=== PATIENT | female | born 1935 | race Caucasian/White ===

== ENCOUNTER 2019-01-12 16:58 | Observation (INO) | payer OTHER ==
--- OUTSIDE RECORDS SUMMARY | 2019-01-12 17:32 | XMS REPORT | Clinical Summary ---
:1935 Author Organization [facility] Address [address] [place] [address] Care Team Providers Name Role Phone Rafael Valdovinos MD Primary Care Provider Allergies Active Allergy Reactions Severity Noted Date Comments No Known Drug Allergies 01/19/2016 Medications Medication Sig Dispensed Refills Start Date End Date Status amLODIPine (NORVASC) 2.5 TK 1 T PO QD 5 03/01/2016 Active MG tablet VOLTAREN 1 % gel APPLY 4 2 04/16/2016 Active APPLICATIONS QID PRN irbesartan (AVAPRO) 300 0 05/16/2016 Active MG tablet PARoxetine (PAXIL) 40 MG TK 1 T PO QD 5 04/06/2016 Active tablet zolpidem (AMBIEN) 5 MG Take 5 mg by 3 04/13/2016 Active tablet mouth nightly as needed. esomeprazole (NexIUM) 40 Take 40 mg by 0 Active MG capsule mouth daily before breakfast. multivitamin with Take 1 tablet by 0 Active minerals tablet mouth daily. hydroCHLOROthiazide 0 11/07/2017 Active (HYDRODIURIL) 12.5 MG tablet levocetirizine Take 1 tablet by 0 Active dihydrochloride (XYZAL mouth daily. ORAL) predniSONE (DELTASONE) 5 Take 1 tablet (5 30 tablet 1 11/25/2017 01/25/20 mg tablet mg total) by 18 mouth daily for 60 days. traMADol (ULTRAM) 50 mg Take 2 tablets 60 tablet 2 11/25/2017 01/25/20 tablet (100 mg total) by 18 mouth every 12 (twelve) hours as needed for moderate pain for up to 60 days. Active Problems Problem Noted Date Rheumatoid arthritis 11/26/2016 GERD (gastroesophageal reflux disease) 01/19/2016 OA (osteoarthritis) 01/19/2016 Hypertension 01/19/2016 Scoliosis 01/19/2016 HL (hearing loss) Miscarriage Cancer Overview: Right mastectomy s/p chemo and radiation 1997 with no recurrence Hyperlipidemia Family History Medical History Relation Name Comments Rheum arthritis Mother Rheum arthritis Paternal Grandmother Relation Name Status Comments Mother Paternal Grandmother Social History Tobacco Use Types Packs/Day Years Used Date Never Smoker Smokeless Tobacco: Never Used Alcohol Use Drinks/Week oz/Week Comments No not found Sex Assigned at Date Recorded Not on file Job Start Date Occupation Industry Not on file Not on file Not on file Travel History Travel Start Travel End No recent travel history available. Last Filed Vital Signs Not on file Plan of Treatment Health Maintenance Due Date Last Done Comments SHINGLES VACCINES (#1) 1985 65+ PNEUMOCOCCAL VACCINE (1 of 2 - PCV13) 2000 INFLUENZA VACCINE 03/05/2019 Results Not on fileafter 01/11/2018 ([place] [address] Advance Directives Patient has advance care planning documents on file. For more information, please contact:Adriano Lieberman[address] [place] [address]
[2019-01-12] MEDS ORDERED: ACETAMINOPHEN 325 MG TABLET PO PRN (17:52)
[2019-01-12] MEDS ORDERED: DIPHENHYDRAMINE 25 MG TAB/CAP PO PRN (17:52)
[2019-01-12] MEDS ORDERED: ONDANSETRON 4 MG (ODT) TAB PO PRN (17:53)
[2019-01-12] MEDS ORDERED: LOPERAMIDE HCL 2 MG CAPSULE PO PRN (17:53)
[2019-01-12] MEDS ORDERED: POLYETHYL GLY 3350 17 GM/DOSE PO PRN (17:53)
[2019-01-12] MEDS: NACHLORIDE 0.45% 1,000 ML IV SCH (20:00)
[2019-01-12] MEDS ORDERED: ENOXAPARIN 40 MG/0.4 ML SQ SCH (21:00)
[2019-01-12] MEDS ORDERED: TRAMADOL HCL 50 MG TAB PO PRN (21:06)
[2019-01-12] MEDS: ONDANSETRON 4 MG/2 ML VIAL IV PRN (21:32)
[2019-01-12] MEDS ORDERED: PARoxetine HCl 10 MG TAB PO SCH (22:00)
[2019-01-12] MEDS ORDERED: IRBESARTAN 150 MG TAB PO SCH (22:00)
[2019-01-12 22:43] LABS: Absolute Monocytes 1.3 K/uL (0.1-1.3); Absolute Neutrophil 6.1 K/uL (1.8-8.0); Basophils % 0.4 % (0-1.3); Eosinophils % 1.2 % (0-4.4); Hematocrit 36.5 % (36.0-45.0); Lymphocytes % 21.4 % (15.3-44.8); MPV 8.3 fL (7.6-11.3); Monocytes % 13.2 % (3.3-12.3); RBC Red Blood Cell Count 4.22 M/uL (3.86-4.86)
[2019-01-12 22:52] LABS: Protime INR 1.1
[2019-01-12 23:21] LABS: Albumin 3.4 g/dL (3.4-5.0); Bilirubin Direct 0.2 mg/dL (0-0.2); Bilirubin Total 0.7 mg/dL (0.2-1.0); Phosphorus 3.1 mg/dL (2.5-4.9); Potassium 3.6 mmol/L (3.5-5.1); Protein, Total 6.9 g/dL (6.4-8.2); Thyroid Stimulating Hormone 1.49 uIU/mL (0.360-3.740)
[2019-01-13] MEDS: ONDANSETRON 4 MG/2 ML VIAL IV PRN (02:39)
[2019-01-13 06:15] LABS: Urine Appearance CLEAR; Urine Bilirubin NEGATIVE (NEG); Urine Blood NEGATIVE (NEG); Urine Color YELLOW; Urine Glucose NEGATIVE (NEG); Urine Microscopic Reflex ORDER UMIC; Urine Protein NEGATIVE (NEG); Urine Specific Gravity >=1.030 (1.005-1.030); Urine Urobilinogen 0.2 mg/dL (0.2-1.0); Urine pH 5.5 (5.0-7.0)
[2019-01-13 06:21] LABS: Absolute Lymphocytes (CBC) 1.8 K/uL (0.7-4.9); Absolute Neutrophil 5.1 K/uL (1.8-8.0); Basophils % 0.9 % (0-1.3); Eosinophils % 2.4 % (0-4.4); Lymphocytes % 21.8 % (15.3-44.8); MPV 8.4 fL (7.6-11.3); Monocytes % 12.6 % (3.3-12.3); RBC Red Blood Cell Count 4.17 M/uL (3.86-4.86)
[2019-01-13 06:22] LABS: Urine Bacteria >50 /HPF (<20); Urine Culture Reflex Order REFLEXED; Urine RBC NONE SEEN /HPF (NONE SEEN)
[2019-01-13 06:36] VITALS: BMI 24.2
[2019-01-13 06:42] LABS: Potassium 3.4 mmol/L (3.5-5.1)
[2019-01-13] MEDS: NACHLORIDE 0.45% 1,000 ML IV SCH ×2 (07:20→08:40)
--- NOTE | 2019-01-13 08:09 | RAD REPORT ---
EXAM DESCRIPTION: Payton Martínez (2 Views)01/12/2019 9:55 pm CLINICAL HISTORY: Abdominal pain COMPARISON: 2014 FINDINGS: Bilateral interstitial lung opacities appear chronic The heart is normal size IMPRESSION: No acute abnormalities displayed
--- NOTE | 2019-01-13 08:36 | RAD REPORT ---
EXAM DESCRIPTION: CT - Abdomen Pelvis W Contrast - 01/12/2019 9:47 pm CLINICAL HISTORY: Abdominal pain. COMPARISON: None. TECHNIQUE: Computed axial tomography of the abdomen and pelvis was obtained. 100 cc Isovue-300 is ad ministered intravenously. Oral contrast was given. All CT scans are performed using dose optimization technique as appropriate and may include automated exposure control or mA/KV adjustment according to patient size. FINDINGS: A small hepatic cyst is present Spleen, pancreas, and adrenal appear unremarkable. Small renal cysts. Calculus is present within each kidney without hydronephrosis. Right renal calculu s measures 2 millimeters. Left renal calculus measures 5 millimeters 2.5 centimeter soft tissue structure present in the gastric fundus. Diverticula stem from the colon without evidence of diverticulitis 3.7 centimeter sebaceous cyst subcutaneous tissues midline posterior back Small umbilical hernia IMPRESSION: 2.5 centimeters soft tissue structure in the gastric fundus may represent a mass or nor mal ingested contents. Endoscopy recommended
[2019-01-13] MEDS ORDERED: POTASSIUM CL SA 10 MEQ TAB PO ONE (09:00)
[2019-01-13] MEDS ORDERED: predniSONE 5 MG TAB PO SCH (09:00)
[2019-01-13] MEDS ORDERED: AMLODIPINE 2.5 MG TAB PO SCH (09:00)
[2019-01-13 11:54] VITALS: O2SAT 95
--- NOTE | 2019-01-13 12:05 | EKG ---
Test Date: 2019-01-12 Test Time: 22:49:50 Assembly Manager: MARK MEASUREMENT RESULTS: Intervals: Rate: 80 TN: 186 QRSD: 92 QT: 386 QTc: 445 [place]: P: 23 TN: 186 QRS: 9 T: 63 INTERPRETIVE STATEMENTS: Sinus rhythm with premature atrial complexes Septal infarct, age undetermined Abnormal ECG Compared to ECG 04/11/2010 12:15:40 Atrial premature complex(es) now present Myocardial infarct finding now present Ventricular premature complex(es) no longer present ST (T wave) deviation no longer present Electronically Signed On 01-13-19 12:02:31 CDT by Aly Hart
--- NOTE | 2019-01-13 13:04 | P.DS ---
Admission Date: 01/12/19 Discharge Date: 01/13/19 Disposition: ROUTINE DISCHARGE Discharge Condition: FAIR Hospital Course: MS. LOERA IS DOING GREAT. SHE HAS NO MORE NAUSE AND VOMITING. SHE HAS A STOMACH MASS ON CT SCAN. SHE WILL GO TO HER GI [facility]ORS FOR EGD. THIS TIME I SAW HER AFTER TWO YEARS AND SO SHE DOES NOT COME TO ME ROUTINELY. 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 SHE IS AWARE OF WHAT TO DO. SHE UNDERSTOOD. Vital Signs/Physical Exam: Temp Pulse Resp BP Pulse Ox 97 F 87 18 134/53 L 95 01/13/19 08:00 01/13/19 08:40 01/13/19 08:00 01/13/19 08:40 01/13/19 08:00 Laboratory Data at Discharge: WBC 8.2 K/uL (4.3-10.9) 01/13/19 05:47 Hgb 11.9 g/dL (12.0-15.0) L 01/13/19 05:47 Hct 36.0 % (36.0-45.0) 01/13/19 05:47 Plt Count 255 K/uL (152-406) 01/13/19 05:47 PT 12.9 SECONDS (9.5-12.5) H 01/12/19 22:30 INR 1.10 01/12/19 22:30 APTT 25.9 SECONDS (24.3-36.9) 01/12/19 22:30 Sodium 139 mmol/L (136-145) 01/13/19 05:47 Potassium 3.4 mmol/L (3.5-5.1) L 01/13/19 05:47 BUN 16 mg/dL (7-18) 01/13/19 05:47 Creatinine 0.93 mg/dL (0.55-1.3) 01/13/19 05:47 Glucose 103 mg/dL (74-106) 01/13/19 05:47 Phosphorus 3.1 mg/dL (2.5-4.9) 01/12/19 22:30 Magnesium 2.0 mg/dL (1.8-2.4) 01/13/19 05:47 Total Bilirubin 0.7 mg/dL (0.2-1.0) 01/12/19 22:30 AST 16 U/L (15-37) 01/12/19 22:30 ALT 17 U/L (12-78) 01/12/19 22:30 Alkaline Phosphatase 68 U/L (45-117) 01/12/19 22:30 Amylase 42 U/L (25-115) 01/12/19 22:30 Lipase 154 U/L (73-393) 01/12/19 22:30 Home Medications: Amlodipine [Norvasc] 2.5 mg PO DAILY 01/12/19 Cetirizine HCl [Zyrtec] 10 mg PO DAILY PRN 01/12/19 Esomeprazole Mag Trihydrate [Nexium] 40 mg PO BEDTIME 01/12/19 Irbesartan [Avapro] 300 mg PO BEDTIME 01/12/19 Multivitamin [Multivitamins] 1 each PO DAILY 01/12/19 PARoxetine HCl [Paroxetine HCl] 40 mg PO BEDTIME 01/12/19 Prednisone [Elizabeth] 5 mg PO DAILY 01/12/19 Tramadol HCl [Ultram] 50 mg PO Q6HP PRN 01/12/19 Zolpidem Tartrate 5 mg PO BEDTIME 01/12/19 hydroCHLOROthiazide [Hydrochlorothiazide] 25 mg PO DAILY 01/12/19 Promethazine Suppos [Phenergan -Suppos*] 12.5 mg RC QID PRN #10 supp 01/13/19 New Medications: Promethazine Suppos [Phenergan -Suppos*] 12.5 mg RC QID PRN #10 supp PRN Reason: Nausea / Vomiting
[2019-01-13 13:27] VITALS: BP 143/63; TEMP 97.8
[2019-01-13] MEDS ORDERED: ZOLPIDEM TARTRATE 5 MG TABLET PO SCH (21:00)
[2019-01-16 17:36] LABS: Vitamin D 1,25-Dihydroxy Total 44 pg/mL (18-72); Vitamin D,1,25-OH2, D2 <8 pg/mL
== END 2019-01-13 15:49 | disposition home or self-care (01) ==
LOC: 2ND 17:26
PROVIDERS: ADMIT Internal Medicine; ATTEND Internal Medicine
DX: E86.0 Dehydration (principal); R11.2 Nausea with vomiting, unspecified; K31.9 Disease of stomach and duodenum, unspecified; I10 Essential (primary) hypertension; M06.9 Rheumatoid arthritis, unspecified; R94.31 Abnormal electrocardiogram [ECG] [EKG]; I49.1 Atrial premature depolarization; N20.0 Calculus of kidney; K57.30 Diverticulosis of large intestine without perforation or abscess without bleeding; K42.9 Umbilical hernia without obstruction or gangrene; K76.89 Other specified diseases of liver; N28.1 Cyst of kidney, acquired; L72.3 Sebaceous cyst; Z79.899 Other long term (current) drug therapy
CPT/HCPCS: 93005; 87088; 85025 ×2; 87086; 80048 ×2; 36415; 82150; 83735 ×2; 84100; 85610; 80076; 85730; 82652; 84443; 87077; 87186; 82607; 83690; 74177; 71046; Q9967; J1650; J2405 ×2; G0379; G0378; 81003; 81015; J7512

== ENCOUNTER 2019-08-25 09:22 | Day surgery (SDC) | payer OTHER ==
--- NOTE | 2019-08-25 09:07 | RAD REPORT ---
EXAM DESCRIPTION: Payton Gamboa And Felecia (2 Views)08/25/2019 8:50 am CLINICAL HISTORY: Preop for removal of back mass COMPARISON: January 2019 FINDINGS: A chronic appearing lung opacities are present. Lungs appear clear of acute infiltration. The heart is mildly enlarged IMPRESSION: No acute abnormalities displayed
[2019-08-25 09:33] LABS: Absolute Lymphocytes (CBC) 3.4 K/uL (0.7-4.9); Basophils % 1.2 % (0-1.3); Hematocrit 35.5 % (36.0-45.0); Lymphocytes % 29.8 % (15.3-44.8); MPV 7.8 fL (7.6-11.3); RBC Red Blood Cell Count 4.28 M/uL (3.86-4.86)
[2019-08-25 09:41] LABS: Potassium 3.8 mmol/L (3.5-5.1)
[2019-08-25] MEDS ORDERED: CEFAZOLIN/SWI 1gm 1 GM/10 ML SYR ONE (09:47)
[2019-08-25] MEDS ORDERED: Ringers Lactate 1,000 ML IV ONE (09:47)
[2019-08-25] MEDS ORDERED: propofoL 200 MG/20 ML VIAL IV ONE (10:30)
[2019-08-25] MEDS ORDERED: FENTANYL CITR 100 MCG/2 ML ONE (10:30)
[2019-08-25] MEDS ORDERED: MIDAZOLAM HCL 2 MG/2 ML INJ ONE (10:30)
--- NOTE | 2019-08-25 11:24 | EKG ---
Test Date: 2019-08-25 Test Time: 08:55:33 Child Day Care Provider: CHAPITO MEASUREMENT RESULTS: Intervals: Rate: 85 AL: 180 QRSD: 94 QT: 368 QTc: 437 [place]: P: 41 AL: 180 QRS: 25 T: 26 INTERPRETIVE STATEMENTS: Sinus rhythm with premature atrial complexes Otherwise normal ECG Compared to ECG 01/12/2019 22:49:50 Myocardial infarct finding no longer present Electronically Signed On 08-25-19 11:23:15 CADDY/CADDIE SUPERVISOR by Aly Hart
[2019-08-25 12:06] VITALS: TEMP 97
[2019-08-25 16:12] VITALS: BP 169/70; O2SAT 95
--- NOTE | 2019-08-25 19:35 | OP ---
Date of Procedure: 08/25/2019 Surgeon: Pietro Gloria MD Er Medical Technician: FRANK Myrick. Preoperative Diagnosis: Left arm mass and back mass. Postoperative Diagnosis: Left arm mass and back mass. Procedure: 1.Excision of left arm mass 6 x 4 cm with layered closure, length of closure 6 cm. 2.Wide excision, back mass 8 x 4 cm with layered closure, length of closure 8 cm. Estimated Blood Loss: Minimal. Specimen: Left arm mass, lipoma, back mass, sebaceous cyst. Findings: As above. Anesthesia: General. Complications: None. Disposition: Patient tolerated the procedure in stable condition, taken to Recovery in good general condition. Description Of Procedure: Patient was brought to the OR and placed in supine position. General anes thesia was begun. Patient was positioned in the left lateral position, prepped draped in usual steri le fashion. Marcaine 0.5% was infiltrated locally. A 15-blade was used to make a 6 cm incision on t he left arm over this mass medially in the upper part of the arm. Subcutaneous tissue divided and de ep to the subcu tissue, a large 6 x 4 cm mass lipomatous in nature excised and sent to Pathology as joel hines. Wound irrigated. Bleeding controlled with cautery. 3-0 chromic used to reapproximate the subcutaneous tissue and 3-0 chromic also used to close the skin. Sterile dressing was applied. Then on the back, an 8 cm x 4 cm incision was made ellipse in nature. Subcutaneous tissue divided. Aspi ration cyst identified, dissected free from the surrounding tissue. The entire cyst excised with the wall intact and sent to Pathology as specimen. Wound was irrigated. Bleeding was controlled with c autery. 2-0 and 3-0 chromic used to approximate the subcutaneous tissue and then 4-0 nylon used to c lose the skin. Sterile dressing was applied. Patient was awakened and taken to Recovery in good gen eral condition. /MODL Voice ID: [id number] Report ID: [id number]
--- NOTE | 2019-08-25 19:38 | DS ---
Date of Discharge: 08/25/2019 Patient will go to Day Surgery and home when stable. Disposition: Home. Condition: Stable. Discharge Instructions: Resume home medications and diet. Activity as tolerated. No heavy lifting. Keep dressing clean and dry, sponge bathe only. Tylenol No. 3 one tablet p.o. q.4 p.r.n. pain, Cip ro 500 mg p.o. q.12. Follow up my office in a week. Call for appointment. VALENTIN/JOANN Voice ID: [id number] Report ID: [id number]
== END 2019-08-25 13:30 | disposition home or self-care (01) ==
LOC: OR 09:22
PROVIDERS: ATTEND Surgery
PROC: 0JBF0ZZ Excision of Left Upper Arm Subcutaneous Tissue and Fascia, Open Approach (ICD-10-PCS; 2019-08-25)
PROC: 0JB70ZZ Excision of Back Subcutaneous Tissue and Fascia, Open Approach (ICD-10-PCS; principal; 2019-08-25 10:00)
DX: D17.22 Benign lipomatous neoplasm of skin and subcutaneous tissue of left arm (principal); L72.3 Sebaceous cyst; I10 Essential (primary) hypertension
CPT/HCPCS: 93005; 85025; 80048; 36415; 88304; 71046; 11406; 24071; J2704; J2250; J3010; J0690; J7120; 88305

== ENCOUNTER 2022-04-26 11:55 | Inpatient (IN) | payer OTHER ==
--- OUTSIDE RECORDS SUMMARY | 2022-04-26 11:58 | XMS REPORT | Continuity of Care Document ---
:1935 Author Organization [facility] t Address [address] [place] [address] Care Team Providers Name Role Phone Rafael Valdovinos MD Primary Care Physician Rafael Valdovinos Attending Clinician Unavailable ATTRITO ROJAS Attending Clinician Unavailable Problems Condition Condition Condition Status Onset Resolution Last Treating Co mments Source Name Details Category Date Date Treatment Clinician Date Gastric Gastric Disease Active 2018-08 [facility] polyps [facility]ps [facility] l Rheumatoid Rheumatoid Disease Active [facility] arthritis arthritis 11-26 st 00[facility]: [facility] 00 l GERD GERD Disease Active [facility] (gastroeso (gastroeso 01-18 phageal phageal 00:00: Hospita reflux reflux 00 l disease) disease) OA OA Disease Active [facility] (osteoarth (osteoarth 16 st ritis) ritis) 00:00: Hospita 00 l Hypertensi Hypertensi Disease Active M [facility]i on on 01-18 00:00: Hospita 00 l Scoliosis Scoliosis Disease Active Met hodi 16 st 00:00: Hospita 00 l HL HL Disease Active [facility] (hearing (hearing st loss) loss) Hospita l Miscarriag Miscarriag Disease Active M ethodi e e st Hospita l Cancer Cancer Disease Active Overview: [facility] i Formattin [facility] g of this Hospita note l might be different from the original. Right mastectom y s/p chemo and radiation 1997 with no recurrenc e Hyperlipid Hyperlipid Disease Active M ethodi emia emia st Hospita l Allergies, Adverse Reactions, Alerts Allergy Allergy Status Severity Reaction(s) Onset Inactive Treating Comm ents Source Name Type Date Date Clinician Latex, Propensi Active Itching [facility] Natural ty to 08-13 st Rubber adverse 00:00: Hospita reaction 00 l s to drug Family History Family Member Diagnosis Comments Start Date Stop Date Source Natural mother Rheum arthritis [facility] Paternal grandmother Rheum arthritis [facility] Social History Social Habit Start Date Stop Date Quantity Comments Source Alcohol intake 2020-12-07 2020-12-07 Current Jew 00:00:00 00:00:00 non-drinker of Hospital alcohol (finding) Tobacco use and 2016-05-23 2016-05-23 Smokeless tobacco [facility] exposure 00:00:00 00:00:00 non-user Hospital Alcohol Comment 2016-01-19 2016-01-19 not found Jew 00:00:00 00:00:00 [facility] Sex Assigned At [birth year] Jew 00:00:00 00:00:00 Hospital Smoking Status Start Date Stop Date Source Never smoked tobacco [facility] Medications Ordered Filled Start Stop Current Ordering Indication Dosage Frequency Signature Comments Components Source Medication Medication Date Date Medication? Clinician (SIG) Name Name raloxifene Yes 60mg QD Take 60 mg M ethodi (EVISTA) 60 5-[address] mg tablet 13:09: daily. Hospit a 32 l zinc Yes Take by [facility] sulfate 5-[address] (ZINC-15 13:09: Hospita ORAL) 32 l acetaminoph [place] [id number] 1{tbl} Q4H Take 1 M ethodi en-codeine 5-[address] (TYLENOL 13:09: mouth Hospita WITH 32 every 4 l CODEINE #3) (four) 300-30 mg hours as per tablet needed for moderate pain .acute pain. multivitami 2020-0 Yes 1{tbl} QD Take 1 Me thodi n with 1-[address] minerals 15:07: mouth Hospita tablet 40 daily. l predniSONE 2019-0 Yes 5mg QD Take 5 mg [facility] (DELTASONE) 1-[address] 5 mg tablet 15:07: daily. Hosp fili 40 l cetirizine 2019-0 Yes 10mg QD Take 10 mg M ethodi (ZyrTEC) 10 1-[address] MG tablet 15:07: daily. Hospit a 40 l irbesartan 2015-08 Yes [facility] (AVAPRO) 0-12 st 300 MG 00:00: Hospita tablet 00 l PARoxetine Yes TK 1 T PO Me thodi (PAXIL) 40 9-[address] MG tablet 00:00: Hospita 00 l amLODIPine Yes TK 1 T PO Me [facility] (NORVASC) 7-[address] 2.5 MG 00:00: Hospita tablet 00 l Procedures This patient has no known procedures. Plan of Care Planned Activity Planned Date Details Comments Source Future Scheduled 2022-04-04 HEPATITIS B VACCINES Met [facility] Test 17:36:22 (1 of 3 - 3-dose series) [code = HEPATITIS B VACCINES (1 of 3 - 3-dose series)] Future Scheduled 2022-04-04 COVID-19 VACCINE (#1) [facility] Test 17:36:22 [code = COVID-19 VACCINE (#1)] Future Scheduled 2022-04-04 SHINGLES VACCINES (1 Met [facility] Test 17:36:22 of 2) [code = SHINGLES VACCINES (1 of 2)] Future Scheduled 2022-04-04 65+ PNEUMOCOCCAL [facility] Test 17:36:22 VACCINE (1 - PCV) [code = 65+ PNEUMOCOCCAL VACCINE (1 - PCV)] Future Scheduled 2022-04-04 INFLUENZA VACCINE Method [facility] Test 17:36:22 [code = INFLUENZA VACCINE] Encounters Start End Encounter Admission Attending Care Care Encounter Source Date/Time Date/Time Type Type Clinicians Facility Department ID 2022-03-08 Outpatient SINDY Valdovinos [facility] [id number] Common 08:14:04 Rafael [id number] [facility] 2022-04-23 2022-04-23 [place] M00 [id number] 13:38:00 16:54:[address] 2020-12-07 2020-12-07 Outpatient [facility] [id number] [address] 00:00:00 00:00:00 RITO Martinez[address] Results This patient has no known results.
[2022-04-26 13:21] LABS: Absolute Lymphocytes (CBC) 0.9 K/uL (0.7-4.9); Hematocrit 34.2 % (36.0-45.0); Lymphocytes % 4.2 % (15.3-44.8); MCV 91.4 fL (80-100); MPV 7.6 fL (7.6-11.3); RBC Red Blood Cell Count 3.74 M/uL (3.86-4.86)
--- NOTE | 2022-04-26 13:24 | RAD REPORT ---
EXAM DESCRIPTION: RAD - Chest Single View - 04/26/2022 12:56 pm CLINICAL HISTORY: MALAISE COMPARISON: Two view chest 08/25/2019 TECHNIQUE: AP portable chest image was obtained 04/26/2022 12:56 pm . FINDINGS: Lung volumes are low. Substantial portions of the right upper lobe show airspace opacifica tion with air bronchogram formation. Minimal patchy left upper lobe airspace opacification is seen. A larger area of interstitial and alveolar opacification is present in the left lower lobe partially o bscuring the left heart border and left hemidiaphragm. Trachea is in the midline. Heart and vasculature are normal. No pneumothorax or large pleural effusio n. Small left pleural effusion cannot be excluded. No acute bony abnormality seen. No acute aortic fi ndings suspected. IMPRESSION: Moderate-sized right upper lobe and left lower lobe pneumonias with minimal left upper l obe pneumonia as well.
[2022-04-26 13:34] LABS: Albumin 2.7 g/dL (3.4-5.0); Bilirubin Total 0.9 mg/dL (0.2-1.0); Potassium 3.8 mmol/L (3.5-5.1); Protein, Total 6.1 g/dL (6.4-8.2)
[2022-04-26] MEDS ORDERED: CEFTRIAXONE 1000 MG/VIAL ONE (14:19)
[2022-04-26] MEDS ORDERED: AZITHROMYCIN 500 MG INJ IVPB ONE (14:19)
[2022-04-26] MEDS ORDERED: NA CHLORIDE 0.9% 250 ML ONE (14:19)
--- NOTE | 2022-04-26 14:25 | RAD REPORT ---
EXAM DESCRIPTION: CT - Angio Aorta For Dissection - 04/26/2022 2:10 pm CLINICAL HISTORY: hypoxia, L flank pain, abnormal chest film COMPARISON: Portable chest same date TECHNIQUE: Dynamically enhanced 3 mm thick images of the chest, abdomen, and upper pelvis were obtai desi during administration of approximately 150mL Isovue 370 IV contrast. Sagittal and coronal reconst ruction images were generated using MIP and reviewed. Exam utilizes a protocol to evaluate entire cou rse of the aorta. All CT scans are performed using dose optimization technique as appropriate and may include automated exposure control or mA/KV adjustment according to patient size. FINDINGS: Aorta is normal in diameter with no dissection or other acute aortic findings. Reconstruct ion images show no significant findings. Aorta is tortuous following the course of the bony scoliosis . Pulmonary arteries are normal as well. No cardiomegaly, pericardial thickening or pericardial effusio n. Patient has significant underlying interstitial lung disease. Extensive airspace opacification presen t throughout most of the right upper lobe. Small airspace opacities are present in the right middle a nd right lower lobes. Honeycombing in the posterior right lower lung field present. Patchy airspace o pacification seen in the posterior aspect of the left upper lobe and in the superior segment left low er lobe. Airspace opacification continues inferiorly into the lingula. Small amount of infiltrate is seen in the posterior gutter where there is also honeycombing identifiable. A small right pleural eff usion is present with fluid also seen along the superior aspect of the major fissure. Minimal fluid s een along the superior aspect of the fissure and in the posterior gutter on the left. No pneumothorax . A few small nonspecific mediastinal and hilar lymph nodes are present likely reactive from the infilt rative changes. No chest wall mass or abnormal axillary lymphadenopathy. Right mastectomy surgical ch anges are noted. Celiac, SMA and renal arteries show no suspicious findings. Two renal artery supply the right kidney. Solid abdominal viscera and bowel show no significant findings. Incidental note made of renal cysts. No mass or abnormal lymphadenopathy. No free air, free fluid or inflammatory stranding. No urinary bladder abnormality. Scoliosis is present with prominent degenerative changes in the spine. IMPRESSION: Negative CT scan of the aorta for acute or significant finding. No pulmonary emboli identified. Extensive bilateral pneumonia findings are present superimposed on chronic lung disease. Pneumonia fi ndings are most pronounced in the right upper lobe.
[2022-04-26 14:42] LABS: Urine Blood Negative (Negative); Urine Glucose Negative (Negative); Urine Protein 1+ (Negative); Urine Specific Gravity 1.015 (1.005-1.030); Urine pH 5.5 (5.0-7.0)
[2022-04-26 14:53] LABS: Protime INR 1.27
[2022-04-26 15:00] LABS: Urine Bacteria 20-50 /HPF (<20); Urine Mucus Slight /HPF (None Seen)
--- NOTE | 2022-04-26 15:58 | ER ---
Nurse's Notes [facility] Name: Yady Jaime Age: 87 yrs Sex: Female : 1935 Arrival Date: 04/26/2022 Time: 11:58 Bed 27 Private MD: Rafael Valdovinos V Diagnosis: Pneumonia, unspecified organism;UTI/ Urinary tract infection, site not specified;Elevated Troponin Presentation: 04/26 12:06 Chief complaint: Patient states: She hurts all over her body and I think she is aa5 dehydrated. She was diagnosed with a UTI on Saturday but the antibiotics aren't working. Coronavirus screen: Client presents with at least one sign or symptom that may indicate coronavirus-19. Standard/surgical mask placed on the client. Ebola Screen: No symptoms or risks identified at this time. 12:06 Method Of Arrival: Wheelchair aa5 12:21 Initial Sepsis Screen: Does the patient meet any 2 criteria? No. Patient's initial bm7 sepsis screen is negative. Does the patient have a suspected source of infection? Yes: Dysuria/Frequency/Urgency/UTI. Risk Assessment: Do you want to hurt yourself or someone else? Patient reports no desire to harm self or others. Onset of symptoms is unknown. 12:21 Acuity: BUSTER 2 bm7 Triage Assessment: 12:21 General: Appears in no apparent distress. uncomfortable, Behavior is anxious. Pain: bm7 Complains of pain in back. EENT: No deficits noted. No signs and/or symptoms were reported regarding the EENT system. Neuro: No deficits noted. Cardiovascular: Patient's skin is warm and dry. Chest pain is denied. Respiratory: Airway is patent Respiratory effort is even, unlabored, Respiratory pattern is regular, symmetrical, Breath sounds are clear bilaterally. GI: Parent/caregiver reports the patient having constipation. : Parent/caregiver report the patient having burning with urination inability to void urinary frequency. Derm: No deficits noted. No signs and/or symptoms reported regarding the dermatologic system. Musculoskeletal: Reports pain in back. Historical: - Allergies: 12:21 No Known Allergies; bm7 - Home Meds: 12:21 Unable to obtain [Active]; bm7 - PMHx: 12:21 Unable to Obtain; bm7 - PSHx: 12:21 Unable to Obtain; bm7 - Immunization history:: Adult Immunizations up to date. - Social history:: Smoking status: unknown. Screenin:10 Abuse screen: Denies threats or abuse. Denies injuries from another. jh6 13:10 Nutritional screening: No deficits noted. Tuberculosis screening: No symptoms or risk jh6 factors identified. Fall Risk None identified. Assessment: 13:10 General: Appears uncomfortable, well groomed, Behavior is calm, cooperative. jh6 13:10 Pain: Complains of pain in back Pain currently is 5 out of 10 on a pain scale. Quality jh6 of pain is described as aching, Pain began 2-3 days ago. Is continuous, Alleviated by rest, repositioning, Aggravated by increased activity, repositioning, weight bearing. Neuro: No deficits noted. Cardiovascular: No deficits noted. Capillary refill < 3 seconds Clubbing of nail beds is absent JVD is absent Patient's skin is warm and dry. Rhythm is irregular. Respiratory: Airway is patent Trachea midline Respiratory effort is even, unlabored, Respiratory pattern is regular, symmetrical. 14:30 Reassessment: Patient and/or family updated on plan of care and expected duration. Pain jh6 level reassessed. Patient is alert, oriented x 3, equal unlabored respirations, skin warm/dry/pink. Patient states symptoms have improved. 04/27 00:51 Reassessment: Patient repeatedly taking off high flow NC. Patient will DeSat into the ll3 70's. Patient educated on need for oxygen. Patient appeared to understand but than would later forget and take NC off again. notified of patients mental and physical state. Charge nurse notified that a sitter would be appropriate for this patient. No sitter available. Both HC and charge aware of request. 00:51 General: Bipap being placed on patient at this time in hopes that will help her keep ll3 her oxygen up. . Vital Signs: 04/26 12:06 BP 137 / 61; Pulse 70; Resp 18; Temp 98.2(TE); Pulse Ox 80% ; Weight 63.5 kg (R); aa5 Height 5 ft. 5 in. (165.10 cm); Pain 5/10; 12:25 Pulse Ox 85% on 4 lpm NC; bm7 12:45 BP 132 / 94; Pulse 112; Resp 22; Pulse Ox 90% on 2 lpm NC; Pain 5/10; jh6 14:26 BP 131 / 60; Pulse 109; Resp 22; Pulse Ox 90% on 2 lpm NC; Pain 5/10; jh6 12:06 Body Mass Index 23.30 (63.50 kg, 165.10 cm) aa5 Vitals: 12:45 Cardiac Rhythm Assessment Irregular. jh6 ED Course: 11:58 Patient arrived in ED. rg4 11:58 Rafael Valdovinos MD is Private Physician. rg4 12:11 Mis Beard FNP is [facility]. jh7 12:11 Néstor Morillo MD is Attending Physician. jh7 12:21 Triage completed. bm7 12:21 Arm band placed on right wrist. bm7 12:24 Oxygen administration via nasal cannula \T\ 4L/min Response to oxygen therapy: symptoms bm7 improved. 12:57 Chest Single View XRAY In Process Unspecified. EDMS 13:00 Placed in gown. Call light in reach. Side rails up X 1. Adult w/ patient. jh6 14:[address] via wheelchair. jh6 14:12 CT Aorta for Dissection In Process Unspecified. EDMS 15:56 Rafael Valdovinos MD is Hospitalizing Provider. jh7 17:56 Mis Hardin, RN is Primary Nurse. 6 19:27 Primary Nurse role handed off by Mis Hardin, RN ll3 19:27 Miguel Lock, EDVIN is Primary Nurse. ll3 Administered Medications: 12:30 CANCELLED (ordered in errorr): NS 0.9% 1000 ml IV at 1 bolus Per protocol; 1000 [facility] 12:31 CANCELLED (ordered in errorr): Rocephin (cefTRIAXone) 1 grams IV at 1 calculated rate 7 once; Given slow IV push per pharmacy instructions 14:00 Drug: Rocephin (cefTRIAXone) 1 grams Route: IV; Rate: 1 calculated rate; Site: left jh6 antecubital; 14:00 Drug: AZITHromycin 500 mg Route: IVPB; Infused Over: 1 hrs; Site: left antecubital; 6 Outcome: 15:57 Decision to Hospitalize by Provider. 7 04/27 05:57 Patient left the ED. tw5 Signatures: Dispatcher [employer] EDMS Ignacia Rg, RN RN aa5 Argentina Aquino rg4 Jadyn Otero, RN RN bm7 Sherri Nath tw5 Miguel Lock, RN RN ll3 Mis Hardin, RN RN jh6 Mis Beard, PEDIATRIC PSYCHOLOGIST PEDIATRIC PSYCHOLOGIST jh7
--- NOTE | 2022-04-26 15:58 | EDPHYS ---
Physician Documentation [facility] Name: Yady Jaime Age: 87 yrs Sex: Female : 1935 Arrival Date: 04/26/2022 Time: 11:58 Bed 27 Private MD: Rafael Valdovinos V ED Physician Néstor Morillo HPI: 04/26 12:25 This 87 yrs old Female presents to ER via Wheelchair with complaints of Pain All Over. jh7 12:25 Onset: The symptoms/episode began/occurred acutely. Patient presents for left jh7 side/flank pain since Saturday. States that she was seen at [place] [facility] who checked her blood pressure and diagnosed her with a muscle spasm. She was discharged with muscle relaxers at that time. Reports that 2 days ago she got a call that she actually had a UTI and was put on Macrobid. Reports that her appetite has decreased over the past couple days and that her pain is worsened. Her PCP is Dr. Mesa and her node js developer is Dr. Carey.. Historical: - Allergies: 12:21 No Known Allergies; bm7 - Home Meds: 12:21 Unable to obtain [Active]; bm7 - PMHx: 12:21 Unable to Obtain; bm7 - PSHx: 12:21 Unable to Obtain; bm7 - Immunization history:: Adult Immunizations up to date. - Social history:: Smoking status: unknown. ROS: 12:25 Eyes: Negative for injury, pain, redness, and discharge, ENT: Negative for injury, jh7 pain, and discharge, Neck: Negative for injury, pain, and swelling, Cardiovascular: Negative for chest pain, palpitations, and edema, Respiratory: Negative for shortness of breath, cough, wheezing, and pleuritic chest pain. 12:25 Skin: Negative for injury, rash, and discoloration, Neuro: Negative for headache, weakness, numbness, tingling, and seizure. 12:25 Constitutional: Positive for fatigue, poor PO intake, Negative for fever. 12:25 Abdomen/GI: Positive for constipation, Negative for nausea, vomiting, and diarrhea. 12:25 Back: Positive for flank pain. 12:25 : Positive for flank pain, Negative for urinary symptoms. Exam: 12:25 Constitutional: This is a well developed, well nourished patient who is awake, alert, jh7 and in no acute distress. Head/Face: Normocephalic, atraumatic. Eyes: Pupils equal round and reactive to light, extra-ocular motions intact. Lids and lashes normal. Conjunctiva and sclera are non-icteric and not injected. Cornea within normal limits. Periorbital areas with no swelling, redness, or edema. ENT: Nares patent. No nasal discharge, no septal abnormalities noted. Tympanic membranes are normal and external auditory canals are clear. Oropharynx with no redness, swelling, or masses, exudates, or evidence of obstruction, uvula midline. Mucous membranes moist. Neck: Trachea midline, no thyromegaly or masses palpated, and no cervical lymphadenopathy. Supple, full range of motion without nuchal rigidity, or vertebral point tenderness. No Meningismus. Cardiovascular: Regular rate and rhythm with a normal S1 and S2. No gallops, murmurs, or rubs. Normal PMI, no JVD. No pulse deficits. Abdomen/GI: Soft, non-tender, with normal bowel sounds. No distension or tympany. No guarding or rebound. No evidence of tenderness throughout. Back: No spinal tenderness. No costovertebral tenderness. Full range of motion. Skin: Warm, dry with normal turgor. Normal color with no rashes, no lesions, and no evidence of cellulitis. MS/ Extremity: Pulses equal, no cyanosis. Neurovascular intact. Full, normal range of motion. Neuro: Awake and alert, GCS 15, oriented to person, place, time, and situation. Motor strength 5/5 in all extremities. Sensory grossly intact. Normal gait. 12:25 Respiratory: the patient does not display signs of respiratory distress, Respirations: normal, Breath sounds: decreased breath sounds, that are mild, are located in both bases, Respiratory rate: 18 Vital Signs: 12:06 BP 137 / 61; Pulse 70; Resp 18; Temp 98.2(TE); Pulse Ox 80% ; Weight 63.5 kg (R); aa5 Height 5 ft. 5 in. (165.10 cm); Pain 5/10; 12:25 Pulse Ox 85% on 4 lpm NC; bm7 12:45 BP 132 / 94; Pulse 112; Resp 22; Pulse Ox 90% on 2 lpm NC; Pain 5/10; jh6 14:26 BP 131 / 60; Pulse 109; Resp 22; Pulse Ox 90% on 2 lpm NC; Pain 5/10; jh6 12:06 Body Mass Index 23.30 (63.50 kg, 165.10 cm) aa5 MDM: 12:11 Patient medically screened. [facility] 16:23 Differential diagnosis: viral Infection, bacterial infection, pneumonia UTI. Data [facility] reviewed: vital signs, nurses notes, lab test result(s), EKG, radiologic studies, CT scan, plain films. Data interpreted: Pulse oximetry: is 93 %. Interpretation: acceptable. Counseling: I had a detailed discussion with the patient and/or guardian regarding: the historical points, exam findings, and any diagnostic results supporting the discharge/admit diagnosis, the need for further work-up and treatment in the hospital. ED course: Spoke to Dr. Valdovinos regarding patient admission. He advised to switch the antibiotics to Zosyn and vancomycin and to admit to him under inpatient status.. 04/26 12:17 Order name: Blood Culture Adult (2) [facility] 04/26 12:17 Order name: CBC with Diff; Complete Time: 13:35 [facility] 04/26 12:17 Order name: CMP; Complete Time: 13:35 [facility] 04/26 12:17 Order name: Lactate; Complete Time: 13:41 [facility] 04/26 12:17 Order name: Protime (+inr); Complete Time: 15:39 [facility] 04/26 12:17 Order name: Ptt, Activated; Complete Time: 15:39 [facility] 04/26 12:17 Order name: Urine Culture [facility] 04/26 12:17 Order name: Urine Microscopic Only; Complete Time: 15:39 [facility] 04/26 12:26 Order name: Troponin HS; Complete Time: 13:41 [facility] 04/26 14:42 Order name: Urine Dipstick-Ancillary; Complete Time: 14:52 [facility] 04/26 15:46 Order name: SARS RAPID; Complete Time: 00:43 [facility] 04/26 20:06 Order name: Comprehensive Metabolic Panel; Complete Time: 00:43 [facility] 04/26 20:06 Order name: Magnesium; Complete Time: 00:43 [facility] 04/26 20:09 Order name: CBC with Automated Diff; Complete Time: 00:43 [facility] 04/26 12:17 Order name: Chest Single View XRAY; Complete Time: 13:25 7 04/26 12:17 Order name: Accucheck; Complete Time: 14:02 7 04/26 12:17 Order name: Cardiac monitoring; Complete Time: 14:02 7 04/26 12:17 Order name: EKG - Nurse/Tech; Complete Time: 14:02 7 04/26 12:17 Order name: IV Saline Lock - Large Bore; Complete Time: 14:03 [facility] 04/26 12:17 Order name: Labs collected and sent; Complete Time: 04:48 7 04/26 12:30 Order name: CT Aorta for Dissection; Complete Time: 14:36 7 04/26 20:09 Order name: Troponin High Sensitivity; Complete Time: 00:43 EDMS 04/26 20:16 Order name: Protime (+INR); Complete Time: 00:43 EDMS 04/26 20:16 Order name: PTT, Activated Partial Thromb; Complete Time: 00:43 EDMS 04/27 00:42 Order name: ABG Arterial Blood Gas; Complete Time: 00:43 EDMS 04/27 05:29 Order name: Urine Dipstick-Ancillary EDMS 04/26 12:17 Order name: O2 Per Protocol; Complete Time: 04:48 7 04/26 12:17 Order name: O2 Sat Monitoring; Complete Time: 14:03 7 04/26 12:17 Order name: Urine Dipstick-Ancillary (obtain specimen); Complete Time: 05:29 jh7 EC:25 Rate is 122 beats/min. Rhythm is regular. QRS [place] is Normal. RI interval is normal at jh7 192 msec. QRS interval is normal at 86 msec. QT interval is normal at 344 msec. No Q waves. T waves are Inverted in lead V1. Clinical impression: Sinus tachycardia. Administered Medications: 12:30 CANCELLED (ordered in errorr): NS 0.9% 1000 ml IV at 1 bolus Per protocol; 1000 mL bolusj7 12:31 CANCELLED (ordered in errorr): Rocephin (cefTRIAXone) 1 grams IV at 1 calculated rate jh7 once; Given slow IV push per pharmacy instructions 14:00 Drug: Rocephin (cefTRIAXone) 1 grams Route: IV; Rate: 1 calculated rate; Site: left jh6 antecubital; 14:00 Drug: AZITHromycin 500 mg Route: IVPB; Infused Over: 1 hrs; Site: left antecubital; [facility] Disposition Summary: 04/26/22 15:57 Hospitalization Ordered Hospitalization Status: Inpatient Admission [facility] Provider: Rafael Valdovinos [facility] Condition: Stable [facility] hospital Problem: new [facility] hospital Symptoms: have improved [facility] Bed/Room Type: Standard [facility] Location: Telemetry/MedSurg (Inpatient)(04/27/22 05:21) Room Assignment: [facility](04/27/22 05:21) Diagnosis - Pneumonia, unspecified organism [facility] - UTI/ Urinary tract infection, site not specified [facility] - Elevated Troponin [facility] Forms: - Medication Reconciliation Form [facility] - SBAR form [facility] Signatures: Dispatcher [employer] EDMS Shanae Moctezuma RN RN Theodora Chung 2 Jadyn Otero RN RN 7 Mis Hardin RN RN 6 Mis Beard FNP OPERATIONS SUPERINTENDENT 7 Lorenza Trent PA-C PAGerri sb4 Corrections: (The following items were deleted from the chart) 12:30 12:18 NS 0.9% 1000 ml IV at 1 bolus Per protocol; 1000 mL bolus ordered. [place] [id number] 12:31 12:18 Rocephin (cefTRIAXone) 1 grams IV at 1 calculated rate once; Given slow IV push [facility] per pharmacy instructions ordered. [facility] 23:01 15:57 Telemetry/MedSurg (Inpatient) [place] [id number] 23:01 15:57 [place] [id number] 04/27 05:21 04/26 23:01 [facility] ER HOLD [facility] 04/27 05:21 04/26 23:01 ERHOLD- [facility]
[2022-04-26] MEDS: PIPER TAZO 3.375 GM in NA CHLORIDE 0.9% 100 ML IV SCH (18:29)
[2022-04-26] MEDS ORDERED: NA CHLORIDE 0.9% 100 ML ONE (18:50)
[2022-04-26] MEDS ORDERED: PIPERACIL/TAZO 3.375 GM VIAL IV ONE (18:50)
[2022-04-26] MEDS: D5 0.45 NS 1,000 ML IV SCH (18:59)
[2022-04-26 19:48] LABS: Absolute Lymphocytes (CBC) 1.2 K/uL (0.7-4.9); Hematocrit 35.7 % (36.0-45.0); Lymphocytes % 5.9 % (15.3-44.8); MCV 91.5 fL (80-100); MPV 7.9 fL (7.6-11.3)
[2022-04-26] MEDS ORDERED: VANCOMYCIN 1.5 GM in NA CHLORIDE 0.9% 500 ML IVPB ONE (20:00)
[2022-04-26 20:05] LABS: Albumin 2.7 g/dL (3.4-5.0); Bilirubin Total 0.6 mg/dL (0.2-1.0); Magnesium 2.1 mg/dL (1.8-2.4); Potassium 4.2 mmol/L (3.5-5.1); Protein, Total 6.3 g/dL (6.4-8.2)
[2022-04-26 20:15] LABS: Protime INR 1.19
[2022-04-26 20:31] LABS: SARS-CoV-2 Antigen Rapid Res Negative (Negative)
--- NOTE | 2022-04-26 21:59 | P.HP ---
Certification for Inpatient Patient admitted to: Inpatient With expected LOS: >2 Midnights Practitioner: I am a practitioner with admitting privileges, knowledge of patient current condition, hospital course, and medical plan of care. Services: Services provided to patient in accordance with Admission requirements found in Title 42 Section 412.3 of the Code of Federal Regulations Patient History Date of Service: 04/26/22 Reason for admission: WEAKNESS,FATIGUE, FEVER History of Present Illness: MS LOERA WAS BROUGHT TO ER BY FAMILY FOR WEAKNESS. SHE DOES NOT REALLY COMPLAIN MUCH BUT ON INTERROGATION SHE CLAIMS TO HAVE COUGH AND DYSPNEA. SHE HAS BILATERAL LARGE PNEUMONIA WITH WBC COUNT ELEVATION. CT DISSECTION WAS NEGATIVE. Allergies No Known Allergies Allergy (Verified 08/25/19 09:14) Home Medications: Amlodipine [Norvasc] 2.5 mg PO DAILY 01/12/19 Cetirizine HCl [Zyrtec] 10 mg PO DAILY PRN 01/12/19 Esomeprazole Mag Trihydrate [Nexium] 40 mg PO BEDTIME 01/12/19 Irbesartan [Avapro] 300 mg PO BEDTIME 01/12/19 Multivitamin [Multivitamins] 1 each PO DAILY 01/12/19 PARoxetine HCl [Paroxetine HCl] 40 mg PO BEDTIME 01/12/19 Prednisone [Elizabeth] 5 mg PO DAILY 01/12/19 Tramadol HCl [Ultram] 50 mg PO Q6HP PRN 01/12/19 Zolpidem Tartrate 5 mg PO BEDTIME 01/12/19 hydroCHLOROthiazide [Hydrochlorothiazide] 25 mg PO DAILY 01/12/19 - Past Medical/Surgical History Diabetic: No -: Parathyroid -: masectomy right side -: hysterectomy -: Bilat foot sx -: Bilat carpal tunnel sx -: cataract sx bilat -: Lt lung biopsy - Social History Alcohol use: No CD- Drugs: No Caffeine use: No Review of Systems 10-point ROS is otherwise unremarkable General: Weakness, Malaise Respiratory: Cough Physical Examination - Physical Exam General: Oriented x3, Mild distress (WEAK. ) HEENT: Atraumatic, PERRLA, Mucous membr. moist/pink, EOMI, Sclerae nonicteric Neck: Supple, 2+ carotid pulse no bruit, No LAD, Without JVD or thyroid abnormality Respiratory: Clear to auscultation bilaterally, Normal air movement Cardiovascular: Regular rate/rhythm, Normal S1 S2 Gastrointestinal: Normal bowel sounds, No tenderness Musculoskeletal: No tenderness Integumentary: No rashes Neurological: Normal gait, Normal speech, Normal strength at 5/5 x4 extr, Normal tone, Normal affect Lymphatics: No axilla or inguinal lymphadenopathy - Studies Laboratory Data (last 24 hrs) 04/26/22 14:00: PT 14.0 H, INR 1.27, APTT 26.0 04/26/22 13:04: Sodium 136, Potassium 3.8, BUN 22 H, Creatinine 0.96, Glucose 159 H, Total Bilirubin 0.9, AST 37, ALT 35, Alkaline Phosphatase 65 04/26/22 13:04: WBC 20.20 H*, Hgb 11.4 L, Hct 34.2 L, Plt Count 320 Assessment and Plan - Problems (Diagnosis) (1) Pneumonia, bacterial Current Visit: Yes Status: Acute Plan: CHANGE ABX TO VANCOMYCIN AND ZOSYN SHE IS IMMUNOSUPPRESSED DAILY LAB. CHANGE TO ORAL WHEN STABLE. (2) Rheumatoid arthritis Current Visit: Yes Status: Chronic Plan: DOES NOT DO WELL WITH RA MEDS SHE GET PAIN MEDS FROM ME. (3) Immunosuppressed status Current Visit: Yes Status: Chronic - Advance Directives Does patient have a Living Will: No Does patient have a Durable POA for Healthcare: No
[2022-04-26] MEDS: ALBUTEROL 2.5 MG/3 ML NEB SOL NEB PRN (23:20)
[2022-04-26] MEDS ORDERED: ALBUTEROL 2.5 MG/3 ML NEB SOL ONE (23:34)
[2022-04-26] MEDS ORDERED: FUROSEMIDE 20 MG/ 2ML VIAL IV ONE (23:42)
[2022-04-26] MEDS ORDERED: FUROSEMIDE 20 MG/ 2ML VIAL ONE (23:58)
[2022-04-27] MEDS ORDERED: METHYLPREDNISOLONE 40 MG INJ IV ONE (00:41)
[2022-04-27 00:42] LABS: Arterial Blood Carboxyhemoglob 1.3 % (0-1.5); Blood Gas Oxyhemoglobin 85.3 % (94-97); Blood O2 Saturation 87.2 % (92-98.5)
[2022-04-27] MEDS ORDERED: METHYLPREDNISOLONE 40 MG INJ ONE (00:54)
[2022-04-27] MEDS: PIPER TAZO 3.375 GM in NA CHLORIDE 0.9% 100 ML IV SCH ×3 (01:00→16:38)
[2022-04-27] MEDS ORDERED: PIPERACIL/TAZO 3.375 GM VIAL IV ONE (01:25)
[2022-04-27] MEDS ORDERED: NA CHLORIDE 0.9% 100 ML ONE (01:25)
[2022-04-27] MEDS: HALOPERIDOL LACT 5 MG/ML INJ IM PRN ×3 (01:34→23:18)
[2022-04-27] MEDS ORDERED: HALOPERIDOL LACT 5 MG/ML INJ ONE (01:34)
[2022-04-27 01:35] VITALS: BMI 23.1
[2022-04-27] MEDS ORDERED: LORazepam 2 MG/ML VIAL IV ONE (03:11)
[2022-04-27] MEDS ORDERED: LORazepam 2 MG/ML VIAL ONE (03:19)
[2022-04-27 05:29] LABS: Urine Blood Negative (Negative); Urine Glucose Negative (Negative); Urine Protein Negative (Negative); Urine pH 5.5 (5.0-7.0)
[2022-04-27] MEDS: D5 0.45 NS 1,000 ML IV SCH ×2 (15:00→23:23)
--- NOTE | 2022-04-27 16:42 | P.PN ---
Subjective Date of Service: 04/27/22 Chief Complaint: WEAKNESS,FATIGUE, FEVER Subjective: Improving ELIZABETH HAD A ROUGH NIGHT WITH DYSPNEA, HYPOXIA, AGITATION, ANXIETY ETC. NURSES CALLED ME ABOUT FIVE TIMES FOR ALL THESE ISSUES. ONE DOSE OF LASIX, ONE DOSE OF SOLUMEDROL, ONE DOSE OF HALDOL AND LASTLY ONE DOSE OF ATIVAN HELPED HER SETTLE. SHE HAS NO PAIN, SHE IS LOT BETTER THIS AM. Review of Systems 10-point ROS is otherwise unremarkable General: Weakness, Malaise Physical Examination - Vital Signs Temperature: 97.8 F Blood Pressure: 125/55 Pulse: 90 Respirations: 22 Pulse Ox (%): 96 - Physical Exam General: Oriented x3, Mild distress HEENT: Atraumatic, PERRLA, EOMI Neck: Supple, JVD not distended Respiratory: Diminished Cardiovascular: Regular rate/rhythm, Normal S1 S2 Gastrointestinal: Normal bowel sounds, No tenderness Musculoskeletal: No tenderness Integumentary: No rashes Neurological: Normal speech, Normal tone, Normal affect Lymphatics: No axilla or inguinal lymphadenopathy - Studies Microbiology Data (last 24 hrs): 04/26/22 14:00 Blood - Blood Blood Culture Gram Stain - Final 04/26/22 14:00 Blood - Blood Gram Stain - Final Medications List Reviewed: Yes Assessment And Plan - Current Problems (Diagnosis) (1) Pneumonia, bacterial Current Visit: Yes Status: Acute Plan: CHANGE ABX TO VANCOMYCIN AND ZOSYN SHE IS IMMUNOSUPPRESSED DAILY LAB. CHANGE TO ORAL WHEN STABLE. CONTINUE DUAL COVERAGE GRAM POS COCCI GREW FROM BLOOD. (2) Rheumatoid arthritis Current Visit: Yes Status: Chronic Plan: DOES NOT DO WELL WITH RA MEDS SHE GET PAIN MEDS FROM ME. (3) Immunosuppressed status Current Visit: Yes Status: Chronic (4) Gram positive septicemia Current Visit: Yes Status: Acute Plan: ID PENDING. VANCOMYCIN SHOULD WORK. I HAD PA CHANGE THE ANTIBIOTIC TO VANCO AND ZOSYN I SUSPECTED SHE WILL NEED BETTER COVERAGE.
[2022-04-27] MEDS ORDERED: HOME MED 1 EA UNK (Naloxegol Oxalate [Movantik] 25 MG Tablet) PO SCH (16:45)
[2022-04-27] MEDS ORDERED: ENOXAPARIN 30 MG/0.3 ML SQ SCH (17:00)
[2022-04-27] MEDS: SOTALOL HCL 80 MG TAB PO SCH (19:18)
[2022-04-27] MEDS ORDERED: VANCOMYCIN 1 GM in NA CHLORIDE 0.9% 250 ML IVPB SCH (20:00)
[2022-04-27] MEDS: CODEINE 30MG/APAP 300MG TAB PO SCH (20:05)
[2022-04-27] MEDS: APIXABAN 5 MG TABLET PO SCH (20:05)
[2022-04-28] MEDS: PIPER TAZO 3.375 GM in NA CHLORIDE 0.9% 100 ML IV SCH (01:48)
[2022-04-28 05:40] LABS: Hematocrit 36.7 % (36.0-45.0); Lymphocytes % 6.5 % (15.3-44.8); MCV 91.5 fL (80-100); MPV 8.1 fL (7.6-11.3); RBC Red Blood Cell Count 4.01 M/uL (3.86-4.86)
[2022-04-28 05:54] LABS: Magnesium 2.2 mg/dL (1.8-2.4); Potassium 4.7 mmol/L (3.5-5.1)
[2022-04-28] MEDS: SOTALOL HCL 80 MG TAB PO SCH (06:01)
[2022-04-28 06:17] LABS: Blood Morphology Comment NOT SEEN (NOT SEEN); Platelet Estimate INCR; Platelets, Giant NOTED
[2022-04-28] MEDS ORDERED: VANCOMYCIN 1.25 GM in NA CHLORIDE 0.9% 250 ML IVPB SCH (08:00)
[2022-04-28] MEDS ORDERED: LORazepam 2 MG/ML VIAL IV PRN (08:09)
[2022-04-28] MEDS: CODEINE 30MG/APAP 300MG TAB PO SCH (08:21)
[2022-04-28] MEDS: APIXABAN 5 MG TABLET PO SCH (08:21)
[2022-04-28] MEDS: ALBUTEROL 2.5 MG/3 ML NEB SOL NEB PRN (08:42)
[2022-04-28] MEDS ORDERED: PREDNISONE 5 MG PO SCH (09:00)
[2022-04-28] MEDS ORDERED: Meropenem 1,000 MG in NA CHLORIDE 0.9% 100 ML IV SCH (09:00)
[2022-04-28] MEDS ORDERED: FLUCONAZOLE 400 MG IVPB 400 MG/200 ML BAG IV SCH (09:00)
[2022-04-28] MEDS ORDERED: LORazepam 2 MG/ML VIAL IV SCH (09:00)
[2022-04-28] MEDS ORDERED: PARoxetine HCL 10 MG TAB PO SCH (09:00)
[2022-04-28] MEDS ORDERED: RALOXIFENE HCL 60 MG TAB PO SCH (09:00)
[2022-04-28] MEDS ORDERED: ROSUVASTATIN 10 MG TAB PO SCH (09:00)
[2022-04-28] MEDS ORDERED: PAROXETINE HCL 40 MG PO SCH (09:00)
[2022-04-28] MEDS ORDERED: predniSONE 5 MG TAB PO SCH (09:00)
[2022-04-28] MEDS ORDERED: POTASSIUM CL SA 10 MEQ TAB PO SCH (09:00)
[2022-04-28] MEDS ORDERED: FUROSEMIDE 20 MG/ 2ML VIAL IV SCH (09:00)
[2022-04-28 15:17] VITALS: TEMP 98.2
[2022-04-28 15:22] VITALS: O2SAT 90
[2022-04-28 15:24] VITALS: BP 131/60
[2022-04-28] MEDS ORDERED: ENOXAPARIN 30 MG/0.3 ML SQ SCH (17:00)
== END 2022-04-28 09:59 | disposition hospice, inpatient (51) | DRG 871 ==
LOC: ER 11:55 → ERHOLD 16:10 → 2ND 04-27 05:26
PROVIDERS: ADMIT Internal Medicine; ATTEND Internal Medicine
PROC: 5A09457 Assistance with Respiratory Ventilation, 24-96 Consecutive Hours, Continuous Positive Airway Pressure (ICD-10-PCS; principal; 2022-04-26)
DX: A41.9 Sepsis, unspecified organism (principal); J15.9 Unspecified bacterial pneumonia; N39.0 Urinary tract infection, site not specified; F41.9 Anxiety disorder, unspecified; M06.9 Rheumatoid arthritis, unspecified; K59.00 Constipation, unspecified; R09.02 Hypoxemia; R77.8 Other specified abnormalities of plasma proteins; Z79.52 Long term (current) use of systemic steroids; Z90.11 Acquired absence of right breast and nipple; Z79.899 Other long term (current) drug therapy; Z90.710 Acquired absence of both cervix and uterus; Z20.822 Contact with and (suspected) exposure to COVID-19
CPT/HCPCS: 36415; 71045; 71275; 74175; 80048; 80053; 81003; 81015; 82805; 83605; 83735; 84484; 85025; 85610; 85730; 87040; 87086; 87088; 87205; 87811; 94002; 94003; 94640; 94660; 94760; 96374; 96375; 99284; J0456; J1450; J1630; J1940; J2185; J2543; J2920; J3370; J7040; J7050; J7512; J7799; Q9967

== ENCOUNTER 2022-04-28 10:03 | Inpatient (IN) | payer OTHER ==
--- OUTSIDE RECORDS SUMMARY | 2022-04-28 10:06 | XMS REPORT | Continuity of Care Document ---
:1935 Author Organization [facility] t Address 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 [facility] polyps polyps [facility]osp[facility] 00 l Rheumatoid Rheumatoid Disease Active M [facility] arthritis arthritis 11-26 00:00: Hospita 00 l GERD GERD Disease [...] Stop Date Source Natural mother Rheum arthritis [facility] Paternal grandmother Rheum arthritis [facility] Social History Social Habit Start Date Stop Date Quantity Comments Source Alcohol intake 2020-12-07 2020-12-07 Current [facility] 00:00:00 00:00:00 non-drinker of Hospital alcohol (finding) Tobacco use and 2016-05-23 2016-05-23 Smokeless tobacco [facility] exposure 00:00:00 00:00:00 non-user Hospital Alcohol Comment 2016-01-19 2016-01-19 not found [facility] 00:00:00 00:00:00 [facility] Sex Assigned At [birth year] [facility] 00:00:00 00:00:00 Hospital Smoking Status Start Date Stop Date Source Never smoked tobacco [facility] ospital Medications Ordered Filled Start Stop Current Ordering Indication Dosage Frequency Signature Comments Components Source Medication Medication Date Date Medication? Clinician (SIG) Name Name acetaminoph [place] [id number] 1{tbl} Q4H Take 1 M ethodi en-codeine 5-[address] (TYLENOL 13:09: mouth Hospita WITH 32 every 4 l CODEINE #3) (four) 300-30 mg hours as per tablet needed for moderate pain .acute pain. raloxifene Yes 60mg QD Take 60 mg M [facility]i (EVISTA) 60 5-[address] mg tablet 13:09: daily. Hospit a 32 l zinc 2021-0 Yes Take by [facility] sulfate 5-[address] (ZINC-15 13:09: Hospita ORAL) 32 l acetaminoph 0 Yes [id number] 1{tbl} Q4H Take 1 M ethodi en-codeine 5-[address] (TYLENOL 13:09: mouth Hospita WITH 32 every 4 l CODEINE #3) (four) 300-30 mg hours as per tablet needed for moderate pain .acute pain. raloxifene Yes 60mg QD Take 60 mg M ethodi (EVISTA) 60 5-[address] mg tablet 13:09: daily. Hospit a 32 l zinc Yes Take by [facility] sulfate 5-[address] (ZINC-15 13:09: Hospita ORAL) 32 l multivitami 2019-0 Yes 1{tbl} QD Take 1 [facility] n with 1-[address] minerals 15:07: mouth Hospita tablet 40 daily. l predniSONE 2020-0 Yes 5mg QD Take 5 mg [facility] (DELTASONE) 1-[address] 5 mg tablet 15:07: daily. Hosp fili 40 l cetirizine 2019-0 Yes 10mg QD Take 10 mg M ethodi (ZyrTEC) 10 1-[address] MG tablet 15:07: daily. Hospit a 40 l multivitami 2019-0 Yes 1{tbl} QD Take 1 [facility] n with 1-[address] minerals 15:07: mouth Hospita tablet 40 daily. l predniSONE 2020-0 Yes 5mg QD Take 5 mg [facility] (DELTASONE) 1-[address] 5 mg tablet 15:07: daily. Hosp fili 40 l cetirizine 2020-0 Yes 10mg QD Take 10 mg M ethodi (ZyrTEC) 10 1-[address] MG tablet 15:07: daily. Hospit a 40 l irbesartan 2015-08 Yes [facility] (AVAPRO) 0-12 st 300 MG 00:00: Hospita tablet 00 l irbesartan 2015-08 Yes [facility] (AVAPRO) 0-12 st 300 MG 00:00: Hospita tablet 00 l PARoxetine Yes TK 1 T PO [facility] (PAXIL) 40 9-[address] MG tablet 00:00: Hospita 00 l PARoxetine 2015-0 Yes TK 1 T PO [facility] (PAXIL) 40 9-[address] MG tablet 00:00: Hospita 00 l amLODIPine 2015- Yes TK 1 T PO [facility] (NORVASC) 7-[address] 2.5 MG 00:00: Hospita tablet 00 l amLODIPine 2015- Yes TK 1 T PO [facility] (NORVASC) 7-[address] 2.5 MG 00:00: Hospita tablet 00 l Procedures This patient has no known procedures. Plan of Care Planned Activity Planned Date Details Comments Source Future Scheduled 2022-04-04 HEPATITIS B VACCINES Met [facility] Test 17:36:22 (1 of 3 - 3-dose series) [code = HEPATITIS B VACCINES (1 of 3 - 3-dose series)] Future Scheduled 2022-04-04 COVID-19 VACCINE (#1) [facility] Test 17:36:22 [code = COVID-19 VACCINE (#1)] Future Scheduled 2022-04-04 SHINGLES VACCINES (1 Met [facility] Test 17:36:22 of 2) [code = SHINGLES VACCINES (1 of 2)] Future Scheduled 2022-04-04 65+ [facility] VACCINE (1 - PCV) [code = 65+ PNEUMOCOCCAL VACCINE (1 - PCV)] Future Scheduled 2022-04-04 INFLUENZA VACCINE Method [facility] Test 17:36:22 [code = INFLUENZA VACCINE] Future Scheduled 2022-04-04 HEPATITIS B VACCINES Met [facility] Test 17:36:22 (1 of 3 - 3-dose series) [code = HEPATITIS B VACCINES (1 of 3 - 3-dose series)] Future Scheduled 2022-04-04 COVID-19 VACCINE (#1) [facility] Test 17:36:22 [code = COVID-19 VACCINE (#1)] Future Scheduled 2022-04-04 SHINGLES VACCINES (1 Met [facility] Test 17:36:22 of 2) [code = SHINGLES VACCINES (1 of 2)] Future Scheduled 2022-04-04 65+ [facility] 17:36:22 VACCINE (1 - PCV) [code = 65+ PNEUMOCOCCAL VACCINE (1 - PCV)] Future Scheduled 2022-04-04 [facility]ACCINE [facility] Test 17:36:22 [code = INFLUENZA VACCINE] Encounters Start End Encounter Admission Attending Care Care Encounter Source Date/Time Date/Time Type Type Clinicians Facility Department ID 2022-03-08 Outpatient SINDY Valdovinos [facility] [id number] Common 08:14:04 Rafael [id number] [facility] 2022-04-23 2022-04-23 Outpatient Yumkio Calderon M00 [id number] 13:38:00 16:54:[address] [facility] 2020-12-07 2020-12-07 Outpatient ATTAR, [facility] [id number] [address] 00:00:00 00:00:00 RITO Martinez4 Jose sandoval Results This patient has no known results.
[2022-04-28] MEDS: HYDROMORPHONE HCL 1 MG/ML INJ IV PRN ×3 (11:17→20:51)
[2022-04-28 11:41] VITALS: BMI 23.1
[2022-04-28] MEDS: LORazepam 2 MG/ML VIAL IV PRN (12:51)
--- NOTE | 2022-04-28 14:07 | P.HP ---
Certification for Inpatient Patient admitted to: Inpatient Patient will require the following post-hospital care: Hospice Practitioner: I am a practitioner with admitting privileges, knowledge of patient current condition, hospital course, and medical plan of care. Services: Services provided to patient in accordance with Admission requirements found in Title 42 Section 412.3 of the Code of Federal Regulations Patient History Date of Service: 04/28/22 Reason for admission: SEPSIS History of Present Illness: MS. LOERA IS A FRAIL 87 YEARS OLD LADY WITH RA AND IMMUNOSUPPRESSED STATUS COMES WITH COUGH, HYPOXIA, HAS LARGE BILATERAL PNEUMONA THAT FAILED TO RECOVER WITH VANCOMYCIN AND ZOSYN. SHE IS GETTING PROGRESSIVELY HYPOXIC, SHE LATER DEVELOPED A FIB AND NOW V TACH. HER K AND MAG ARE NORMAL. SHE DEPSITE ALL MEDS ONE DOSE OF STEROID HAS GOTTEN WORSE. I TALKED TO DAUGHTER LAST NIGHT AND TODAY. PATIENT HAD RECENTLY MENTIONED TO DAUGHTER THAT IF SHE GETS SEVERELY ILL AND IS NOT GOING TO MAKE IT SHE JUST WANTS DNR STATUS AND WANTS TO BE COMFORTABLE UNTIL SHE PASSES. I THINK THE TIME HAS COME. THEY HAVE ACCEPTED INPATIENT HOSPICE I THINK SHE MAY NOT SURVIVE MORE THAN COUPLE OF DAYS. Allergies No Known Allergies Allergy (Verified 08/25/19 09:14) Home medications list reviewed: Yes Home Medications: Acetaminophen with Codeine [Acetaminophen-Cod #3 Tablet] 1 tab PO BID 04/27/22 Amlodipine Besylate [Norvasc] 1 tab PO DAILY 04/27/22 Cetirizine HCl [Zyrtec] 1 tab PO PRN PRN 04/27/22 Glucosamine/Chondroiti/[id number] [Cosamin Asu Capsule] 1 tab PO DAILY 04/27/22 Irbesartan 1 tab PO DAILY 04/27/22 Multivit-Min/FA/Lycopen/Lutein [Centrum Silver Tablet] 1 tab PO DAILY 04/27/22 Naloxegol Oxalate [Movantik] 1 tab PO PRN 04/27/22 PARoxetine HCL [Paroxetine HCl] 1 tab PO DAILY 04/27/22 Prednisone [Elizabeth] 1 tab PO DAILY 04/27/22 Raloxifene HCl 1 tab PO DAILY 04/27/22 Rosuvastatin [Crestor*] 1 tab PO DAILY 04/27/22 - Past Medical/Surgical History Diabetic: No -: Parathyroid -: masectomy right side -: hysterectomy -: Bilat foot sx -: Bilat carpal tunnel sx -: cataract sx bilat -: Lt lung biopsy - Social History Smoking Status: Never smoker Alcohol use: No CD- Drugs: No Caffeine use: No Review of Systems 10-point ROS is otherwise unremarkable Respiratory: Shortness of Breath Physical Examination - Vital Signs Temperature: 97.4 F Blood Pressure: 112/68 Pulse: 84 Respirations: 26 - Physical Exam General: Oriented x1, Cooperative, Moderate distress, Severe distress HEENT: Atraumatic, PERRLA, Mucous membr. moist/pink, EOMI, Sclerae nonicteric Neck: Supple, 2+ carotid pulse no bruit, No LAD, Without JVD or thyroid abnormality Respiratory: Diminished Cardiovascular: Irregular heart rate/rhythm Gastrointestinal: Normal bowel sounds, No tenderness Musculoskeletal: No tenderness Integumentary: No rashes Neurological: Normal gait, Normal speech, Normal strength at 5/5 x4 extr, Normal tone, Normal affect Lymphatics: No axilla or inguinal lymphadenopathy Assessment and Plan - Problems (Diagnosis) (1) Gram positive septicemia Current Visit: No Status: Acute Plan: FAILED TO IMPROVE. RAPIDLY GETTING WORSE. DNR IS ADVISED FAMILY HAS AGREED FOR DNR AND HOSPICE. (2) Pneumonia, bacterial Current Visit: No Status: Acute (3) Immunosuppressed status Current Visit: No Status: Chronic - Advance Directives Does patient have a Living Will: No Does patient have a Durable POA for Healthcare: No
[2022-04-28] MEDS ORDERED: SCOPOLAMINE HYDROBROMIDE PATCH TD SCH (15:00)
[2022-04-28 23:22] VITALS: O2SAT 96
[2022-04-29] MEDS: HYDROMORPHONE HCL 1 MG/ML INJ IV PRN ×8 (02:20→22:00)
[2022-04-29] MEDS: LORazepam 2 MG/ML VIAL IV PRN ×5 (09:15→22:01)
--- NOTE | 2022-04-29 14:52 | P.PN ---
Subjective Date of Service: 04/29/22 Chief Complaint: SEPSIS Subjective: Worsening SHE IS BREATHING FASTER AND IS WEAKER,NOT ABLE TO COMMUNICATE WELL. Review of Systems 10-point ROS is otherwise unremarkable General: Weakness Physical Examination - Vital Signs Temperature: 97.2 F Blood Pressure: 128/67 Pulse: 99 Respirations: 18 Pulse Ox (%): 91 - Physical Exam General: Moderate distress, Confused HEENT: Atraumatic, PERRLA, EOMI Neck: Supple, JVD not distended Respiratory: Diminished Cardiovascular: Irregular heart rate/rhythm Gastrointestinal: Normal bowel sounds, No tenderness Musculoskeletal: No tenderness Integumentary: No rashes Neurological: Other, Abnormal strength (GEN WEAK) Lymphatics: No axilla or inguinal lymphadenopathy - Studies Medications List Reviewed: Yes Assessment And Plan - Current Problems (Diagnosis) (1) Gram positive septicemia Current Visit: No Status: Acute Plan: FAILED TO IMPROVE. RAPIDLY GETTING WORSE. DNR IS ADVISED FAMILY HAS AGREED FOR DNR AND HOSPICE. TERMINAL AGONAL BIPAP IS KEEPING HER ALIVE IN [place] FAMILY UNDERSTANDS, DAUGHTER IS OKAY WITH STOPPING BIPAP KEEP MEDS TO KEEP HER COMFORTABLE. (2) Pneumonia, bacterial Current Visit: No Status: Acute (3) Immunosuppressed status Current Visit: No Status: Chronic
[2022-04-29 19:54] VITALS: BP 97/61; TEMP 98.6
[2022-04-30] MEDS: LORazepam 2 MG/ML VIAL IV PRN ×4 (00:03→06:06)
[2022-04-30] MEDS: HYDROMORPHONE HCL 1 MG/ML INJ IV PRN ×4 (00:04→06:07)
--- NOTE | 2022-04-30 17:59 | P.DS ---
Admission Date: 04/28/22 Discharge Date: 04/30/22 Disposition: Reason for Admission: SEPSIS - Problems (1) Gram positive septicemia Status: Acute (2) Pneumonia, bacterial Status: Acute (3) Immunosuppressed status Status: Chronic Brief History of Present Illness: MS. JAIME IS A FRAIL 87 YEARS OLD LADY WITH RA AND IMMUNOSUPPRESSED STATUS COMES WITH COUGH, HYPOXIA, HAS LARGE BILATERAL PNEUMONA THAT FAILED TO RECOVER WITH VANCOMYCIN AND ZOSYN. SHE IS GETTING PROGRESSIVELY HYPOXIC, SHE LATER DEVELOPED A FIB AND NOW V TACH. HER K AND MAG ARE NORMAL. SHE DEPSITE ALL MEDS ONE DOSE OF STEROID HAS GOTTEN WORSE. I TALKED TO DAUGHTER LAST NIGHT AND TODAY. PATIENT HAD RECENTLY MENTIONED TO DAUGHTER THAT IF SHE GETS SEVERELY ILL AND IS NOT GOING TO MAKE IT SHE JUST WANTS DNR STATUS AND WANTS TO BE COMFORTABLE UNTIL SHE PASSES. I THINK THE TIME HAS COME. THEY HAVE ACCEPTED INPATIENT HOSPICE I THINK SHE MAY NOT SURVIVE MORE THAN COUPLE OF DAYS. Hospital Course: Ms Jaime is immunosuppresed lady with RA comes with 3 weeks of illness, weakness, and found to have larger bilateral pneumonia unimproved on zosyn and vancomycin. SHe latetr had A fib and V tachycardia. Per her wish family made her DNR and I advised hospice. She as expected in 3 days. Family was very grateful that we kept her last days very comfortable. Vital Signs/Physical Exam: Temp Pulse Resp BP Pulse Ox 98.6 F 116 H 16 97/61 78 L 04/29/22 19:54 04/29/22 19:54 04/30/22 06:07 04/29/22 19:54 04/30/22 06:07 Home Medications: Acetaminophen with Codeine [Acetaminophen-Cod #3 Tablet] 1 tab PO BID 04/27/22 Amlodipine Besylate [Norvasc] 1 tab PO DAILY 04/27/22 Cetirizine HCl [Zyrtec] 1 tab PO PRN PRN 04/27/22 Glucosamine/Chondroiti/[id number] [Cosamin Asu Capsule] 1 tab PO DAILY 04/27/22 Irbesartan 1 tab PO DAILY 04/27/22 Multivit-Min/FA/Lycopen/Lutein [Centrum Silver Tablet] 1 tab PO DAILY 04/27/22 Naloxegol Oxalate [Movantik] 1 tab PO PRN 04/27/22 PARoxetine HCL [Paroxetine HCl] 1 tab PO DAILY 04/27/22 Prednisone [Elizabeth] 1 tab PO DAILY 04/27/22 Raloxifene HCl 1 tab PO DAILY 04/27/22 Rosuvastatin [Crestor*] 1 tab PO DAILY 04/27/22
[2022-05-01] MEDS ORDERED: SCOPOLAMINE HYDROBROMIDE PATCH TD SCH (09:00)
--- NOTE | 2022-05-01 17:32 | EKG ---
Test Date: 2022-04-26 Test Time: 12:36:17 [employer]: JASVIR MEASUREMENT RESULTS: Intervals: Rate: 122 NJ: 192 QRSD: 86 QT: 344 QTc: 490 Draper: P: 50 NJ: 192 QRS: 24 T: 61 INTERPRETIVE STATEMENTS: Sinus tachycardia and premature ventricular complexes or fusion complexes Septal infarct, age undetermined Abnormal ECG Compared to ECG 08/25/2019 08:55:33 Fusion complex(es) now present Ventricular premature complex(es) now present Myocardial infarct finding now present Sinus rhythm no longer present Atrial premature complex(es) no longer present Electronically Signed On 05-01-22 17:28:59 CDT by Otoniel Roa
== END 2022-04-30 08:54 | disposition expired | DRG 871 ==
LOC: 2ND 10:03
PROVIDERS: ADMIT Internal Medicine; ATTEND Internal Medicine
DX: A41.9 Sepsis, unspecified organism (principal); J15.9 Unspecified bacterial pneumonia; I47.2 Ventricular tachycardia; M06.9 Rheumatoid arthritis, unspecified; I48.91 Unspecified atrial fibrillation; Z66 Do not resuscitate; Z51.5 Encounter for palliative care; Z90.11 Acquired absence of right breast and nipple; Z79.899 Other long term (current) drug therapy; Z90.710 Acquired absence of both cervix and uterus
CPT/HCPCS: 93005; J1170